=== PATIENT | female | born 1950 | race Caucasian/White ===

== ENCOUNTER 2017-09-02 11:56 | Day surgery (SDC) | payer MEDICARE ==
[~2017-09-02] VITALS: Ht 154.9 cm; Wt 90.7 kg
[~2017-09-02 11:56] MED LIST: CEFAZOLIN SOD 1 GM/ ISO 50 ML PREMIX IV ONE
[2017-09-02] MEDS ORDERED: IOHEXOL 50 ML IV ONE (15:18)
[2017-09-02] MEDS ORDERED: LR 1,000 ML IV SCH (15:28)
[2017-09-02] MEDS ORDERED: MORPHINE 4 MG/ML INJ. SYRINGE IVP PRN ×3 (15:30)
[2017-09-02] MEDS ORDERED: METOCLOPRAMIDE HCL 10 MG/2 ML VIAL IVP PRN (15:30)
[2017-09-02] MEDS ORDERED: D5/0.45 NS 1,000 ML IV SCH (15:45)
[2017-09-02] MEDS ORDERED: BUPIVACAINE /PF 0.25% 30 ML VIAL INJ ONE (15:50)
[2017-09-02] MEDS ORDERED: ROCURONIUM BROMIDE 10 MG/ML (ZEMURON) ONE (15:50)
[2017-09-02] MEDS ORDERED: ONDANSETRON HCL 4 MG/2 ML VIAL ONE (15:50)
[2017-09-02] MEDS ORDERED: GLYCOPYRROLATE 0.2 MG/ML VIAL ONE (15:50)
[2017-09-02] MEDS ORDERED: MIDAZOLAM HCL 5 MG/ML VIAL (VERSED) IV ONE (15:50)
[2017-09-02] MEDS ORDERED: SEVOFLURANE 15 MIN GAS INH ONE (15:50)
[2017-09-02] MEDS ORDERED: fentaNYL CITRATE 250 MCG/5 ML AMP ONE (15:50)
[2017-09-02] MEDS ORDERED: NEOSTIGMINE METHYLSULFATE 1 MG/ML, 10 ML VIAL ONE (15:50)
[2017-09-02] MEDS ORDERED: LR 1,000 ML IV.SOLN IV ONE (15:50)
[2017-09-02] MEDS ORDERED: PROPOFOL 200MG/ 20ML VIAL (DIPRIVAN) IV ONE (15:50)
[2017-09-02] MEDS ORDERED: HYDROcodone/ACETAMIN 5-325 MG TAB (NORCO/ VICODIN) ONE (17:06)
[2017-09-02] MEDS ORDERED: HYDROmorphone 1 MG INJ. 1 MG/ML AMPUL IVP PRN (18:30)
[2017-09-02] MEDS ORDERED: HYDROcodone/ACETAMIN 5-325 MG TAB (NORCO/ VICODIN) PO PRN ×2 (18:30)
[2017-09-02 19:19] VITALS: BP_SYST 103
== END 2017-09-02 19:00 | disposition home or self-care (01) ==
LOC: SDS 11:56 → SMU 11:57 → SDS 19:00
PROVIDERS: ATTEND Colon & Rectal Surgery
DX: K81.2 Acute cholecystitis with chronic cholecystitis (principal); K21.9 Gastro-esophageal reflux disease without esophagitis; M81.0 Age-related osteoporosis without current pathological fracture; Z68.36 Body mass index [BMI] 36.0-36.9, adult; Z80.3 Family history of malignant neoplasm of breast; Z82.49 Family history of ischemic heart disease and other diseases of the circulatory system; Z80.0 Family history of malignant neoplasm of digestive organs; Z83.3 Family history of diabetes mellitus; Z80.8 Family history of malignant neoplasm of other organs or systems; Z98.890 Other specified postprocedural states; E55.9 Vitamin D deficiency, unspecified; F41.8 Other specified anxiety disorders; Z79.899 Other long term (current) drug therapy; E66.01 Morbid (severe) obesity due to excess calories; F32.9 Major depressive disorder, single episode, unspecified; G62.9 Polyneuropathy, unspecified; M19.90 Unspecified osteoarthritis, unspecified site
CPT/HCPCS: 47563; 74300; 88304; C1727; C1758; J0690; J2250; J2405; J2704; J2710; J3010; J3490 ×2; J7120; Q9967; 76000

== ENCOUNTER 2020-12-15 19:46 | Emergency (ER) | payer OTHER, SELFPAY ==
[~2020-12-15] VITALS: Ht 154.9 cm; Wt 93.0 kg
[2020-12-15 20:15] VITALS: BP_SYST 158
[2020-12-15] MEDS ORDERED: VANCOMYCIN HCL 1,000 MG in NS 250 ML IV ONE (22:15)
[2020-12-15] MEDS ORDERED: PIPERACILLIN/TAZO 3.375 GM in NS 50 ML IV ONE (22:15)
[2020-12-15] MEDS ORDERED: VANCOMYCIN HCL 1000 MG/VIAL IV ONE (22:54)
[2020-12-15] MEDS ORDERED: PIPERACILLIN/TAZOBACTAM 3.375 GM/VIAL (ZOSYN) IV ONE (22:55)
[2020-12-15 23:47] LABS: BASOPHILS # (AUTO) 0.1 K/uL (0.0-0.2); BASOPHILS % (AUTO) 0.7 % (0.0-2.0); EOSINOPHILS # (AUTO) 0.2 K/uL (0.0-0.4); EOSINOPHILS % (AUTO) 1.2 % (0.0-4.0); HEMATOCRIT 38.3 % (36-48); LYMPHOCYTES # (AUTO) 2.8 K/uL (1.0-5.5); LYMPHOCYTES % (AUTO) 22.3 % (20.5-51.5); MEAN CORPUSCULAR HEMOGLOBIN 31 pg (27-31); MEAN CORPUSCULAR HGB CONC 34 % (32-36); MEAN CORPUSCULAR VOLUME 90 fL (79.0-98.0); MONOCYTES # (AUTO) 1.3 K/uL (0.0-1.0); NEUTROPHILS # (AUTO) 8.3 K/uL (1.8-7.7); NEUTROPHILS % (AUTO) 65.8 % (40.0-70.0); PLATELET COUNT (AUTO) 197 K/uL (130-430); RED BLOOD CELL COUNT(AUTO) 4.27 MIL/uL (4.2-6.2); RED CELL DISTRIBUTION WIDTH 13.7 % (9.0-15.0); WHITE BLOOD COUNT (AUTO) 12.6 K/uL (4.8-10.8)
[2020-12-16 00:02] LABS: ANION GAP 12 (5-15); CALCIUM 8.5 mg/dL (8.4-11.0); CHLORIDE 103 mmol/L (98-107); CREATININE 0.83 mg/dL (0.55-1.30); GLUCOSE 108 mg/dL (70-99); POTASSIUM 3.5 mmol/L (3.5-5.1); SODIUM SERUM 142 mmol/L (136-145); UREA NITROGEN, BLOOD 8 mg/dL (8-21)
[2020-12-16 00:13] LABS: ALANINE AMINOTRANSFERASE 40 U/L (12-78); ALBUMIN 3.2 g/dL (3.4-4.8); ASPARTATE AMINOTRANSFERASE 25 U/L (10-37); TOTAL BILIRUBIN 1.1 mg/dL (0.0-1.0)
[2020-12-16] MEDS ORDERED: KETAMINE HCL 500 MG/10 ML VIAL ONE (06:27)
[2020-12-16] MEDS ORDERED: KETAMINE 30 MG/3 ML SYRINGE IVP ONE (06:30)
[2020-12-16] MEDS ORDERED: LIDOCAINE/EPI 1% 1:100000 20 ML VIAL INJ ONE (06:56)
[2020-12-16] MEDS ORDERED: fentaNYL CITRATE/PF 100 MCG/2 ML AMP IVP ONE (07:00)
[2020-12-16] MEDS ORDERED: fentaNYL CITRATE/PF 100 MCG/2 ML AMP ONE (07:15)
[2020-12-16 08:47] LABS: INR > 9.0 (0.8-1.2); PROTHROMBIN TIME > 90.0 SECS (9.5-12.5)
[2020-12-16 09:58] LABS: INR 1.1 (0.8-1.2); PROTHROMBIN TIME 11.4 SECS (9.5-12.5)
[2020-12-16] MEDS ORDERED: MORPHINE 4 MG INJ. 4 MG/ML VIAL IVP ONE ×2 (10:00→16:30)
[2020-12-16 10:37] LABS: CLARITY/URINE HAZY (CLEAR); COLOR,URINE YELLOW (YELLOW); GLUCOSE,URINE NEGATIVE (NEGATIVE); PH,URINE 5.5 (5.0-8.0); PROTEIN URINE NEGATIVE (NEGATIVE)
[2020-12-16 10:38] LABS: BILIRUBIN,URINE NEGATIVE (NEGATIVE); BLOOD, URINE NEGATIVE (NEGATIVE); KETONES,URINE NEGATIVE (NEGATIVE); LEUKOCYTE ESTERASE ,URINE 1+ (NEGATIVE); NITRITE, URINE NEGATIVE (NEGATIVE); UROBILINOGEN,URINE 0.2 (0.2-1.0)
[2020-12-16 10:39] LABS: BACTERIA,URINE FEW /HPF (None Seen); MUCUS,URINE 1+ /LPF (None Seen); RBC,URINE 0-3 /HPF (0-3)
[2020-12-16] MEDS ORDERED: MORPHINE 4 MG INJ. 4 MG/ML VIAL ONE (16:30)
[2020-12-16] MEDS ORDERED: ESCI10TA PO (17:14)
[2020-12-16] MEDS ORDERED: LIP10 PO (17:14)
[2020-12-16 21:10] VITALS: BP_SYST 132
== END 2020-12-16 21:10 | disposition short-term general hospital (02) ==
LOC: SED 19:46
DX: J95.811 Postprocedural pneumothorax (principal); E78.00 Pure hypercholesterolemia, unspecified; Z79.899 Other long term (current) drug therapy; Z20.822 Contact with and (suspected) exposure to COVID-19
CPT/HCPCS: 32551; 36415; 71045 ×2; 71250; 76376; 80053; 81000; 83605; 85025; 85610; 85730; 87040; 87086; 87426; 93005; 96365; 96368; 96375; 96376; 99285; J2270; J2543; J3010; J3370